=== PATIENT | male | born 1995 | race Caucasian/White ===

== ENCOUNTER 2020-02-27 06:29 | Emergency (ER) | payer OTHER ==
[~2020-02-27] VITALS: Ht 160 cm; Wt 108.9 kg
[2020-02-27] MEDS ORDERED: BACTRIM DS TAB1 EACH PO (09:33)
[2020-02-27 09:45] VITALS: BP 130/87
== END 2020-02-27 09:50 | disposition home or self-care (01) ==
LOC: M.ERS 06:29
DX: N64.59 Other signs and symptoms in breast (principal)

== ENCOUNTER → 2020-03-21 | Outpatient (CLI) | payer OTHER ==
[~2020-03-21] MED LIST: BACTRIM DS TAB1 EACH PO
== END ==
LOC: M.RAD 11:40
PROVIDERS: ATTEND Internal Medicine
DX: N64.9 Disorder of breast, unspecified (principal)